=== PATIENT | female | born 1965 | race Caucasian/White ===

== ENCOUNTER 2024-03-12 08:56 | Day surgery (SDC) | payer OTHER ==
--- NOTE | 2024-03-10 11:37 | HP ---
HISTORY OF PRESENT ILLNESS: The patient is a 58-year-old female who presents with a history of polyps and a right hemicolectomy. She states bowels are loose at times. Colon resection was back in 2019. She states this was not a cancer. It was for a large polyp. She did have some severe diverticulosis on the last colonoscopy. PAST MEDICAL HISTORY: Fibroids, COPD, hypertension. HOME MEDICATIONS: Amlodipine, levothyroxine, metoprolol, aspirin, Qvar inhaler. ALLERGIES: None. PAST SURGICAL HISTORY: Colon resection and hysterectomy. SOCIAL HISTORY: Current smoker. FAMILY HISTORY: None. REVIEW OF SYSTEMS: CONSTITUTIONAL: Denies fever or chills. CHEST: Denies shortness of breath. CARDIOVASCULAR: Denies chest pain. ABDOMEN: Denies abdominal pain. PHYSICAL EXAMINATION: GENERAL: No acute distress. CARDIOVASCULAR: Regular rate and rhythm. RESPIRATORY: Nonlabored. No shortness of breath. ABDOMEN: Soft. ASSESSMENT: History of polyps and right hemicolectomy. PLAN: Colonoscopy with Dr. Connor Tate. This report was dictated for Dr. Tate by Sirena Ellis NP.
[2024-03-12 09:37] VITALS: RESP 16
[2024-03-12] MEDS ORDERED: Versed 2 MG/2 ML Injection ONE (13:26)
[2024-03-12] MEDS ORDERED: DIPRIVAN 200 MG/20 ML IV ONE ×2 (13:26→13:44)
[2024-03-12 14:44] VITALS: BP 110/66; PULSE 60; O2SAT 93
[2024-03-12 14:46] VITALS: TEMP 98.1
--- NOTE | 2024-03-13 18:10 | OP ---
SURGERY DATE/TIME: 03/12/2024 [id number] PREOPERATIVE DIAGNOSES: 1) History of polyps. 2) History of right hemicolectomy. 3) No recent exam. POSTOPERATIVE DIAGNOSES: 1) Patient has had a partial right hemicolectomy. 2) She has a surgical anastomosis on the right side that is normal. 3) She has moderate sigmoid diverticulosis. 4) She has moderate internal hemorrhoids. PROCEDURE: Colonoscopy SURGEON: Connor Tate MD ANESTHESIA: MAC DESCRIPTION OF PROCEDURE AND FINDINGS: She had a 1 cm rectal polyp and a 4 mm rectal polyp, both taken with a hot biopsy forceps to extinction. She had a complete exam to the anastomosis including the anastomosis. Circumferential withdrawal. Two polyps were taken. The patient tolerated the procedure satisfactory. A 5-year followup.
== END 2024-03-12 14:55 | disposition home or self-care (01) ==
LOC: SDC 08:56
PROVIDERS: ATTEND Surgery
DX: Z09 Encounter for follow-up examination after completed treatment for conditions other than malignant neoplasm (principal); Z86.0100 Personal history of colon polyps, unspecified; Z90.49 Acquired absence of other specified parts of digestive tract; K57.30 Diverticulosis of large intestine without perforation or abscess without bleeding; K64.8 Other hemorrhoids; K62.1 Rectal polyp
CPT/HCPCS: J2250; J2704